=== PATIENT | male | born 1940 | race Caucasian/White ===

== ENCOUNTER → 2019-03-08 12:18 | Outpatient (CLI) | payer MEDICARE, OTHER, SELFPAY ==
--- NOTE | 2019-03-08 12:42 | DI.CT.S_ITS ---
PROCEDURE: CT UE LT WO CON INDICATIONS: Primary osteoarthritis, left shoulder TECHNIQUE: Noncontrast 1-1.5 mm thick sections acquired from the acromioclavicular joint to the inferior scapula, with coronal and sagittal reformatting. COMPARISON: None. FINDINGS: Image quality: Diagnostic. Bones: No acute fracture, dislocation, or suspicious osseous lesion is identified involving the osseous structures of the left shoulder. There are severe degenerative changes of the glenohumeral joint with prominent joint space narrowing, large marginal osteophytes, bony remodeling, subchondral sclerosis, and prominent degenerative cystic changes. There are mild to moderate degenerative changes of the acromioclavicular joint. The remainder of the imaged osseous structures of the included portions of the chest are within normal limits for age. Soft tissues: No soft tissue masses or drainable fluid collections are identified. There is no significant atrophy of the rotator cuff muscles to suggest a chronic rotator cuff tear. There likely is at least a small glenohumeral joint effusion. No axillary lymphadenopathy is identified. The included portions of the left lung are unremarkable. The heart appears to be enlarged. The main pulmonary arterial trunk probably also is enlarged. There is aortic atherosclerosis. IMPRESSION: 1. Severe degenerative changes of the left shoulder. No acute fractures. 2. Mild to moderate degenerative changes of the acromioclavicular joint. 3. No significant rotator cuff muscle atrophy is appreciated to suggest a chronic rotator cuff tear. Dictated by: Benigno Muñiz M.D. on 03/08/2019 at 13:46 Approved by: Benigno Muñiz M.D. on 03/08/2019 at 13:48
== END ==
PROVIDERS: Family Provider Family Medicine; PCP Family Medicine; Visit Provider Orthopaedic Surgery
DX: M19.012 Primary osteoarthritis, left shoulder (principal)
CPT/HCPCS: 73200

== ENCOUNTER → 2019-04-14 14:19 | Outpatient (CLI) | payer MEDICARE, OTHER, SELFPAY ==
[2019-04-14 14:44] LABS: Hematocrit 49.3 % (41-53); Hemoglobin 16.6 g/dL (13.5-17.5); Mean Corpuscular HGB Conc 33.7 % (30-36); Platelet Count 252 X10^3/uL (150-400); Red Blood Cell Count 5.54 X10^6/uL (4.5-5.9); Red Cell Distribution Width 14.2 % (11.6-14.8); White Blood Cell Count 7.3 X10^3/uL (4.5-11.0)
[2019-04-14 14:48] LABS: Bacteria Urine None Seen; WBC Urine None Seen (0-5/HPF)
[2019-04-14 14:59] LABS: Hemoglobin A1C% w Est Avg Glu 5.3 % (4.0-6.0)
[2019-04-14 15:20] LABS: Appearance Urine UA CLEAR; Bilirubin Urine UA NEGATIVE (NEGATIVE); Color Urine UA YELLOW; Glucose Urine UA NEGATIVE (Negative); Ketones Urine UA NEGATIVE (NEGATIVE); Leukocyte Esterase Urine UA NEGATIVE (NEGATIVE); Nitrite Urine UA NEGATIVE (Negative); Occult Blood Urine UA 2+ (Negative); Protein Urine UA NEGATIVE (Negative); Specific Gravity Urine UA 1.025 (1.000-1.035); Urobilinogen Urine UA 0.2 E.U./dL (0.2)
[2019-04-14 15:32] LABS: RBC Urine 5-10/HPF (0-5/HPF)
[2019-04-14 15:37] LABS: Transferrin 254 mg/dL (206-381)
== END ==
PROVIDERS: Family Provider Family Medicine; PCP Family Medicine; Visit Provider Orthopaedic Surgery
DX: E61.1 Iron deficiency (principal); N39.0 Urinary tract infection, site not specified; R73.9 Hyperglycemia, unspecified; Z01.818 Encounter for other preprocedural examination
CPT/HCPCS: 36415; 81001; 83036; 84466; 85027

== ENCOUNTER 2019-04-18 08:44 | Inpatient (IN) | payer MEDICARE, OTHER, SELFPAY ==
[2019-04-15 11:56] VITALS: BMI 25.8
[2019-04-18] VITALS (13 sets, daily range): BP systolic 113–149; BP diastolic 54–71; PULSE 56–83; RESP 14–20; TEMP 36.2–37; O2SAT 91–99; BMI 31.3
--- NOTE | 2019-04-18 06:00 | DI.RAD.S_ITS ---
PROCEDURE: XR SHOULDER LT MIN 2V INDICATIONS: POST OPERATIVE LEFT SHOULDER TECHNIQUE: Single views of the shoulder were acquired. COMPARISON: None. FINDINGS: Expected postoperative alignment of left shoulder arthroplasty. No fracture. Overlying postsurgical soft tissue changes. Dictated by: Luis Vivas M.D. on 04/18/2019 at 14:51 Approved by: Luis Vivas M.D. on 04/18/2019 at 14:52
[2019-04-18] MEDS: ACETAMINOPHEN 325 MG TABLET 975 MG PO ×3 (09:29→21:11)
[2019-04-18] MEDS: LACTATED RINGERS 1,000 ML 42 ML IV ×2 (09:29→12:29)
--- NOTE | 2019-04-18 09:35 | PM.PREOP ---
Pre-operative Note Interval Note History & Physical reviewed/Exam performed by Physician: Yes Changes to H&P: No
--- NOTE | 2019-04-18 09:43 | P.OP_ITS ---
Operative Date/Time/Diagnoses Date of procedure: 04/18/19 Time of procedure: 12:30 Pre-op diagnosis: Left shoulder osteoarthritis Post-op diagnosis: same Procedure & Clinicians Procedure: Left total shoulder replacement Same procedure as scheduled: Yes Indications: The patient has had progressively worsening left shoulder pain with radiographic changes consistent with arthritis. Non-operative management has failed and the patient has requested total shoulder replacement. The risks, benefits and alternatives to surgery were discussed with the patient prior to proceeding. Risks discussed included, but were not limited to, failure to relieve pain, stiffness, infection, nerve damage, deep venous thrombosis, pulmonary embolism, stroke, coma, heart attack, permanent paralysis and , as well as the potential need for eventual revision of the prosthetic. Surgeon: Zhou Hart Office Coordinator: Isatu Walton Click Yes if Unassisted: No Anesthesia Type: General, Peripheral nerve block and Local Operative Notes Findings: Severe osteoarthritis with significant osteophyte inferiorly and flattening of the humeral head. Glenoid exposure was particularly difficult d espite extensive releases. Closure Type: primary Specimen(s): none sent Prosthetic devices, grafts, tissues, transplants, or devices: Implants used in this procedure were manufactured by the [employer] and included and Altivate short stem total shoulder system with a size 16 stem, a 50 mm all polyethylene E plus pegged glenoid, a neutral humeral neck and a 50 mm by 20 mm offset humeral head. Applied: drain(s) and implant(s) Estimated Blood Loss (mL): 150 Blood products transfused: none Procedure in detail: The patient was seen in the pre-operative area, where the patient identified the left shoulder as the operative site and this was marked with my initials. The patient received pre-operative antibiotics, underwent an interscalene block, and was taken to the operating room and placed on the operative table in the supine position. After satisfactory anesthesia, a full ?time out? was performed. The patient was repositioned in the ?beach chair? position using a dedicated positioner. All pressure points were well padded, and the knees were slightly bent to prevent tension on the sciatic nerves. The left arm was prepared from the fingers to the base of the neck with ChloroPrep in the usual fashion and draped through sterile drapes. An approximately 15 cm incision was created, starting at the clavicle above the coracoid process and extended towards the deltoid insertion. The deltopectoral interval was used to access the shoulder. The cephalic vein was taken medially. A self retaining retractor was placed. The upper centimeter of the pectoralis major tendon was released. The ?three sisters? were identified and cauterized. The axillary nerve was palpated and protected throughout the case. The biceps was released from its groove and tenodesed over the top of the pectoralis major tendon. The subscapularis was released from the lesser tuberosity with a subscapularis peel and tagged for later repair. The shoulder was dislocated and a cutting guide was used for the proximal humeral osteotomy in 30 degrees of retroversion. The very large humeral osteophyte was removed with an osteotome and rongeurs. The capsule was released carefully to the 9 o'clock position posteriorly. A starter reamer was used followed by the cylindrical reamers. This continued in larger sizes until cortical bite was achieved. Sequential broaching was then performed until a line to line fit with the reamer occurred. A proximal humeral protector was then placed. We then removed the self-retaining retractor and placed retractors to access the glenoid. The subscapularis was released with a ?360 degree release? with care being taken to protect the axillary nerve with the inferior portion of this procedure. The remnant of labrum and biceps stump were removed. Despite circumferential releases of the glenoid and extensive capsular release on the humerus, glenoid access was difficult. Eventually we managed to get adequate retraction. The appropriate size reamer was chosen with the glenoid sizer, and the guide pin placed. The glenoid was appropriately reamed. The guide for the peripheral holes was used and the center hole enlarged. The trial glenoid was placed with good stability. We then cemented the final implant into place after irrigating the peg holes and drying them with thrombin-soaked Gelfoam. The anteroinferior peg hole had perforated the glenoid and was not cemented. We returned our attention to the humerus, a trial humeral head was applied and a trial reduction performed. Stability was checked with 50% posterior translation with spontaneous reduction, external rotation at the side to 45? with the subscapularis held on the repaired position and internal rotation to 70? in the ?scarecrow position?. This was felt to be satisfactory and the appropriate implants were opened. Five holes were drilled along the humeral osteotomy and #2 Ethibond sutures placed for eventual subscapularis repair. The humeral prosthetic was impacted into the humerus. The humeral head was applied when the stem was still slightly proud and impacted to both seat the head and fully seat the stem. The joint was relocated one final time. The joint was irrigated and the subscapularis repaired to the previously placed sutures using Aleksandr-Huan sutures. The top of the subscapularis was closed to the leading edge of the supraspinatus with a figure of 8 #2 Ethibond to close the rotator interval. A deep drain was placed and brought out supero-laterally. The deltopectoral interval was closed with interrupted 0 Vicryl. The subcutaneous layer was closed with 3-0 Vicryl, and the skin with a running 3-0 V-Lock suture and SteriStrips. An Aquacel Ag dressing was applied, the patient?s arm was placed in a sling, and the patient was taken to recovery having tolerated the procedure well. Complications: none Post-operative Condition: stable Disposition: PACU Plan for aftercare: The patient will be maintained on a standard total shoulder replacement protocol with passive range of motion limited to 90 degrees forward flexion, 0 degrees external rotation at the side, 0 degrees abduction and internal rotation to the body. The patient will receive aspirin and sequential compression devices for DVT prophylaxis. The patient will be discharged home when safe for the home environment, likely tomorrow.
--- NOTE | 2019-04-18 10:16 | SUR.PREOP ---
Block start time [1003] . Monitoring initiated and maintained throughout procedure. Oxygen and medications given per anesthesiologist instructions. Patient remained stable throughout procedure, no adverse reactions noted. Block end time 1009.
[2019-04-18] MEDS: CEFAZOLIN 2 GM/100 ML FROZ.PIGGY IV (10:20)
[2019-04-18] MEDS: MIDAZOLAM 2 MG/2 ML VIAL IV (10:20)
[2019-04-18] MEDS: TRANEXAMIC ACID 1,000 MG VIAL 1000 MG INJ ×2 (10:45→12:10)
--- NOTE | 2019-04-18 10:56 | SUR.OPER ---
Beach chair with Pedro/Gladis shoulder positioner. Lower body on padded OR bed. Head in foam padded head cradle, secured with straps. Non-operative arm secured <90 degrees abduction. Pillow under knees. Safety belt at thigh. Cloth tape over blanket over lower legs. Tape across chest over gown.
[2019-04-18] MEDS: BUPIVACAINE 0.5% W/ EPI (PF) VIAL 30 ML INJ (11:03)
[2019-04-18] MEDS: THROMBIN (RECOMBINANT) 5,000 UNIT VIAL 5000 UNIT TOP (11:03)
--- NOTE | 2019-04-18 11:05 | P.PCN_ITS ---
Procedures Date/Time Date of procedure: 04/18/19 Time of procedure: 10:06 Nerve Block Time out performed: Yes Local anesthetic used: other (15mL 0.5Ropivacaine, 5mL 2* Lidocaine) Location of anesthetic used: interscalene Amount of anesthesia used (mL): 20 Nerve blocks: brachial plexus (interscalene) Procedure successful: Yes Patient tolerated procedure: well Complications: none Additional comments: LEFT Brachial plexus nerve block for post operative pain management. Risks and benefits discussed, including bleeding, infection, intravascular injection, nerve damage, block failure. Standard ASA monitors, NC O2. 2mg versed. Pt supine. Chloroprep site preparation, sterile technique. Brachial plexus identified with US guidance, traced from supraclavicular to interscalene. 1mL 2% lidocaine skin wheal. 22g x 50mm Pajunk advanced with in- plane US guidance to brachial plexus. Negative aspiration. LA injected with intermittent negative aspiration. Good LA spread noted on US. No pain, no paraesthesia. Pt tolerated procedure well. Vital signs stable.
--- NOTE | 2019-04-18 12:59 | PC.NURSE ---
Day shift: Pt not on AC unit at this time.
--- NOTE | 2019-04-18 13:38 | PC.NURSE ---
Day shift: Pt on AC unit at this time. Oriented to room and call light. CMS present in BUE. Radial pulse strong. Heart murmur present. Pt denies any pain or discomfort. BT's are hypo. On 1L NC w/ and SpO2 of 94%. Call light in reach. SCD's in place.
[2019-04-18] MEDS: LACTATED RINGERS 1,000 ML 125 ML IV (14:08)
[2019-04-18] MEDS: BENZOCAINE/MENTHOL 1 LOZ PKT 1 EACH PO ×3 (17:51→22:16)
[2019-04-18] MEDS: dilTIAZem CD 240 MG CAP PO (21:11)
[2019-04-18] MEDS: FLECAINIDE 100 MG TABLET PO (21:11)
[2019-04-18] MEDS: OXYCODONE IR 5 MG TABLET PO (22:17)
[2019-04-19] MEDS: OXYCODONE IR 5 MG TABLET PO ×2 (01:35→08:57)
[2019-04-19 03:55] VITALS: BP 141/69; PULSE 65; RESP 14; TEMP 36.8; O2SAT 93
[2019-04-19 05:46] LABS: Hematocrit 43.3 % (41-53); Hemoglobin 14.5 g/dL (13.5-17.5); Mean Corpuscular HGB Conc 33.6 % (30-36); Mean Corpuscular Hemoglobin 29.9 PG (26-34); Mean Corpuscular Volume 89.1 fL (80-100); Platelet Count 225 X10^3/uL (150-400); Red Blood Cell Count 4.86 X10^6/uL (4.5-5.9); Red Cell Distribution Width 14.2 % (11.6-14.8); White Blood Cell Count 18.5 X10^3/uL (4.5-11.0)
[2019-04-19] MEDS: HYDROMORPHONE 0.5 MG INJ IV (05:49)
[2019-04-19 07:39] VITALS: BP 145/78; PULSE 74; RESP 16; TEMP 36.6; O2SAT 95
--- NOTE | 2019-04-19 07:44 | P.DS_ITS ---
History of Present Illness History of Present Illness Date Patient Seen: 04/19/19 Time Patient Seen: 07:44 Chief complaint: [id number] Narrative: The history and physical are contained in the chart in a previously completed note. Please refer to that note for this information. Discharge Providers Provider Date of admission: 04/18/19 08:44 Discharge Date: 04/19/19 Primary care physician: Armen Oden MD Consults: 04/18/19 13:38 Consult to Discharge Planning Routine Comment: Consult to Physical Therapy Evaluate & Treat Comment: PROM 90 ff, 0 ER, 0 ABD, IR to body Physician Instructions: Evaluate and Treat Discharge provider: Zhou Hart MD Summary Hospital Course Discharge Diagnosis: 1. Left shoulder osteoarthritis. Hospital Course: The patient was admitted to the hospital and taken directly to the operating room on April 18, 2019 where he underwent a left total shoulder replacement. He tolerated this procedure well. He did have a stress reaction with his white cells on postoperative day 1 but was not showing any other signs of infection. His neurologic status was intact. He was comfortable and appeared to be ready for discharge on postoperative day 1. Status at Discharge Cognitive/behavioral status at discharge: oriented Functional status at discharge: independent ambulation Overall status at discharge: patient is progressing back to baseline Time Spent with Patient Time spent: Less than 30 minutes Exam Vital Signs (past 8 hours): - 04/18/19 23:55 04/19/19 03:55 Temperature 98.4 F 98.3 F Pulse Rate 76 65 Respiratory Rate 16 14 Blood Pressure 133/71 141/69 H Pulse Oximetry 94 93 Oxygen Delivery Method Nasal Cannula Oxygen Flow Rate 0 Narrative Exam Narrative: Left shoulder wound is dressed with no drainage on the bandage. Light touch is intact in the radial, ulnar, median, musculocutaneous and axillary nerve distribution. He can extend his thumb, abduct his thumb, abduct his fingers and can fire his biceps and deltoid. Objective Labs Result Diagrams: 04/19/19 05:10 Labs: Laboratory Results - last 24 hr 04/19/19 05:10 WBC 18.5 H RBC 4.86 Hgb 14.5 Hct 43.3 MCV 89.1 MCH 29.9 MCHC 33.6 RDW 14.2 Plt Count 225 Discharge Plan Discharge Plan Patient Disposition: Home Discharge Med Rec/Prescriptions Prescriptions: New acetaminophen 325 mg Tablet 975 mg PO TID 30 Days Qty: 270 RF: 0 oxycodone 5 mg Tablet 5 mg PO Q3HR PRN (Reason: Pain, Moderate (4-6)) Qty: 40 RF: 0 Continued diltiazem HCl 240 mg Capsule,Extended Release 24 Hr 240 mg PO BID RF: 0 aspirin [Aspir-81] 81 mg Tablet,Delayed Release (Dr/Ec) 81 mg PO DAILY RF: 0 flecainide 100 mg Tablet 100 mg PO BID RF: 0 Follow up/Referrals: Zhou Hart MD [Physician] - 2 Weeks Armen Oden MD [Primary Care Provider] - Provider Discharge Instructions Diet: Diet as Tolerated and Regular Activity: You may use your left hand in front of your body below shoulder level. You may remove the sling for hygiene and to do pendulum exercises. Cold/Heat Therapy: Apply ice to the left shoulder for 15 minutes every hour as needed for pain control. Skin/Wound/Dressing Care Skin care: Keep a Maxi-pad or washcloth in your left armpit to absorb moisture. Report to your healthcare provider any signs of infection, such as:: chills, fever, night sweats, increased pain, unusual drainage and unusual redness Dressing: Leave the dressing in place until postoperative follow-up. You may shower with the dressing in place. If the central strip of the dressing becomes saturated with either water or blood please contact the office to have it ch anged. Visit Report/Discharge Packet Instructions: DI for Shoulder Replacement Stand Alone Forms: Surgery Discharge Discharge Data Primary Care Provider: Armen Oden Quality VTE Deep Vein Thrombosis/Pulmonary Embolism Present on Admission: No
[2019-04-19] MEDS: ASPIRIN EC 81 MG TABLET PO (08:58)
[2019-04-19] MEDS: dilTIAZem CD 240 MG CAP PO (08:58)
[2019-04-19] MEDS: ACETAMINOPHEN 325 MG TABLET 975 MG PO (08:58)
[2019-04-19] MEDS: FLECAINIDE 100 MG TABLET PO (08:58)
--- NOTE | 2019-04-19 09:19 | CM.DANOTE ---
DCP Assesement: EMR reviewed: Patient is a 78 yr old male who was admitted for total left shoulder replacement preformed by Dr. Hart. Patients PCP is Dr. Oden. patient lives at home with his Evita and daughter Sherrell. Met with patient and family at bedside and explained CM/Rn Role. patient was alert and oriented. Patient requested for dc plan that priority ferry boarding for the 10:35am ferry to [facility] be made to help facilitate getting home post discharge. CM spoke to unit [employer]PUTY [employer] C[employer]S DIRECTOR who will schedule patients Priority boarding. PT evaluation pending. Insurance: 1st payer: Medicare 2nd payer: [employer]. Discharge plan: patient is to d/c home 04/19/2019 by 10am with OP PT on [facility]. pending PT evaluation. No identified d/c planning needs at this time. Christy Rosales RN. Discharge Planning/Care Management Advanced directive, confirm from FAMILY Start: 04/18/19 14:12 Freq: Q24H Status: Active Protocol: Document 04/18/19 14:12 NIRU (Rec: 04/18/19 14:13 NIRU [id number]) Advance Directive, confirm on record Time 14:13 Person contacted evita Copy received No CM Discharge Assessment Start: 04/19/19 09:17 Freq: Status: Active Protocol: Document 04/19/19 09:18 HS (Rec: 04/19/19 09:19 HS [id number]) Discharge Planning Assessment Assigned Food Scientist Christy Rosales RN DPOA/Assigned Designee Name Evita Carpio () Contact Information [phone] Advance Directives? No Advance Directives on File No History Provided By Patient,Medical Record Has Patient been admitted in last 30 No days? Prior Living Arrangements House Household Members spouse Type of transporation used prior to Drives own vehicle admit Independent with ADL's Yes Is patient alert and oriented? Yes Caregiver for Another No Patient/Family Preference OP PT Therapy Barriers to Discharge No Discharge Plan Home Whiteboard Updated in Patient Room with Yes name and ext. # of Food Scientist Review Status In Process Next Review Type Continued Stay Review Pre-Anesthesia Assessment Start: 04/15/19 11:56 Freq: Status: Complete Protocol: Document 04/15/19 11:56 CAB (Rec: 04/15/19 12:36 CAB [id number]) Pre-Anesthesia Assessment Patient Information Reviewed Via Phone Assessment Assessment Completed With Patient Diagnostic Results CBC,EKG Comment Labs @ [facility] 04/14/19, Outside EKG scanned to record Primary Care Provider Armen Oden Seen Specialist in Last 12 Months Yes Specialist Seen Sleeve Sewer,Orthopedist Primary Language Swazi Height 172.72 cm Weight 77.111 kg Body Mass Index (BMI) 25.8 Hearing Ability Hard of Hearing,Use of Hearing Aid Visual Assist Glasses Dentition Type Teeth, Natural Present Barriers to Learning None Hx Anesthesia Reactions No Hx Family Anesthesia Reaction No Hx Malignant Hyperthermia No Hx Blood Transfusions No Anesthesia Review Requested No alcohol intake former Alcohol Intake Frequency Other: No longer drinks r/t heart health Smoking Status Never smoker Substance Use Type does not use Pain Present Pain Reported Musculoskeletal Symptoms Joint Pain,Limited Range of Motion,Muscle Weakness, Numbness History of Falling (Recent or History of No ) Patient is completely paralyzed or No completely immobile Mental Status Oriented to own ability Is patient on oxygen? No Does patient have SANDHU/SOB No Hx Sleep Apnea No Currently Taking a Beta Sherri No Can You Climb a Flight of Stairs Without Yes SOB Hx Chest Pain No Hx SOB No Hx Syncope or Dizziness No Anti-Coagulant Therapy Yes: 81mg ASA Has a Sleeve Sewer Yes: Dr. Castro-last visit 06/07 Cardiac Testing No Hx Pacemaker/ICD No Pacemaker Rep Required? No Cardiac Clearance Received Yes Comment Cardiac records put to surgery folder for dos Diet Type At Home Regular dysphagia No Genitourinary Symptoms Itching Bladder Pattern Frequency,Nocturia Urinary Catheter Present No Hx Urinary Self Catheterization No Diabetes No HgbA1C 5.3 Date 04/14/19 Hx Drug Resistant Organism No Presence of External or Internal Medical No Devices Have you traveled outside the [facility] in the last 30 days? Marital Status Lives With spouse Prior Living Arrangements House Number of Floors (Floors) Two Floors Support System Spouse Does the Patient Have Assistance After Yes Surgery Patient Discharge Plan Description Return Home Comment Lives on [facility], advised overnight-3 day length stay per surgeon Feels Safe in Current Environment Yes Been Physically Hurt or Threatened By a No Person in Current Environment Do you have thoughts of harming yourself None or others? Are you currently considering suicide? No Do you have a plan to hurt yourself or No Plan others? Do You Have Any Spiritual Beliefs That No May Affect Your HC Choices? Do You Have Any Cultural Practices That No May Affect Your HC Choices? Comment Nico Who Can We Speak to About Patient's Care Family, friends Identifying Code for Release of Patient Declines to issue Information Health Care Proxy/Next of Kin Evita () Health Care Proxy Emergency Contact Name Evita () Emergency Contact Advance Directives? No: Information put to pt's chart PAC Instructions Durable medical equipment, Medications to take/avoid, Nasal antibiotic,No ETOH/ petroleum product on skin DOS, NPO,Post-op transportation,Pre -surgical wash,Sturdy shoes/ comfortable clothes,Do not bring valuables and remove jewelry
--- NOTE | 2019-04-19 09:44 | PT.IIE ---
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) Physical Therapy Inpatient Evaluation/Re-Eval M1 PT/OT-IP Prior Functional Status Start: 04/19/19 08:39 Freq: NEEDED Status: Active Protocol: Document 04/19/19 09:25 AW (Rec: 04/19/19 09:44 AW [email or web address]) Medical Review Prior Functional Status Medical History Reviewed Yes Diet/Fluid Consistency Regular Communication Able to make needs known Mobility and Gait Pt was indepedent with all functional mobility, requiring no assistive device and no limitations Activities of Daily Living and IADL's Indpendent Social History Household Members spouse Living Arrangements House Number of Floors (Floors) Two Floors Number of Stairs To Enter/Railing? 4 PHILIPPE with bilateral rails; 14 steps between floors - 1st 7 steps have left rail, 2nd 7 steps have right rail. 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 is available to assist as needed . M2 PT-IP Current Condition Start: 04/19/19 08:39 Freq: NEEDED Status: Active Protocol: Document 04/19/19 09:25 AW (Rec: 04/19/19 09:44 AW [email or web address]) Physical Therapy Current Condition Current Condition Evaluation Date 04/19/19 Treatment Diagnosis s/p L TSA, difficulty/ increased dependence with ADL' s Precautions Shoulder Precautions Sling,PROM,Internal Rotation to Body,No External Rotation, No Abduction,Forward Flexion to 90 degrees,Pendulums Brace shoulder sling with neck strap and waist strap Weight Bearing Status Weight Bearing Status Full Weight Bearing M3 PT-IP Subjective Start: 04/19/19 08:39 Freq: NEEDED Status: Active Protocol: Document 04/19/19 09:25 AW (Rec: 04/19/19 09:44 AW [email or web address]) Subjective Physical Therapy Visit Type Type Initial Evaluation Visit Start Time 08:50 Visit Stop Time 09:16 Total Visit Minutes 26 Notes Pt seen with spouse present for caregiver training Physical Therapy Visit Comments Patient Comments Pt willing to work with PT Patient Goals Pt is ready to go home as soon as possible Therapy Pain Assessment Pain When Pain Assessed During Mobility Pain Present Pain Present Pain Reported Location Lt Shoulder Intensity 3 Scale Used Numeric (1 - 10) Pain Behaviors Facial Grimacing,Wincing Pain Management Techniques Apply Cold,Timing of Activity with Medications M4 PT-IP Mobility and Gait Start: 04/19/19 08:39 Freq: NEEDED Status: Active Protocol: Document 04/19/19 09:25 AW (Rec: 04/19/19 09:44 AW [email or web address]) PT-Bed Mobility Assessment Supine to Sit Supine to Sit Standby Assistance Scooting Scooting to Edge of Bed Standby Assistance PT-Transfer Assessment Sit to and From Stand Sit to and from Stand Standby Assistance Equipment Transfer Assistive Device Gait Belt Orthotic/Prosthetic Devices or Brace: Yes Transfers Transfer Destination Chair Transfer Technique pt ambulated SBA, no device Transfer Ability Level of Assist Standby Assistance Comments Mobility Comments Pt required min verbal cues to maintain internally rotated position without shoulder elevation, requiring no more than SBA Gait Assessment Gait Gait Assistance Required: Independent Distance (Feet) 100 Able to Maintain Weight Bearing Status Yes During Gait Assistive Devices Assistive Device Gait Belt Orthotic/Prosthetic Devices or Brace: Yes Gait Deviations General Gait Pattern Within Normal Limits Comments Gait Comments Pt ambulated without need for assistive device or assistance . Stair Climbing Assessment Evaluation Level of Assist On Stairs Standby Assistance Devices Stair Climbing Assistive Devices None Technique/Endurance Stair Climbing Direction Ascend and Descend Stair Climbing Technique Step Over Step Number of Steps Climbed 3 Query Text: Stair Climbing Set # Repetitions (reps) 4 Comments Stair Climbing Comments Pt navigated stairs SBA without railing. PT provided instruction to use right railing only, but pt was able to use the stairs without. PT-Balance Assessment Sitting Balance and Reactions Static Sitting Balance Ability Normal Dynamic Sitting Balance Ability Normal Standing Balance and Reactions Static Standing Balance Ability Normal Dynamic Standing Balance Ability Good Device Used none M5 PT-IP Objective Assessments Start: 04/19/19 08:39 Freq: NEEDED Status: Active Protocol: Document 04/19/19 09:25 AW (Rec: 04/19/19 09:44 AW [email or web address]) Orientation Orientation/Cognition Level of Alertness Alert Orientation Name,Date,Place,Situation Language Function Ability No Deficits Noted Safety Awareness Understands Safety Issues Memory Description No Deficits Noted Comments Pt able to repeat shoulder precautions. Gross Range of Motion Upper Extremity ROM Assessment Left Impaired Lower Extremity ROM Assessment Within Functional Limits Strength Upper Extremity Strength Assessment Left Impaired Lower Extremity Strength Assessment Within Functional Limits Coordination Assessment Gross Coordination Gross Coordination WNL Sensation Assessment Sensation Gross Sensation WNL M6 PT-IP Treatment Start: 04/19/19 08:39 Freq: NEEDED Status: Active Protocol: Document 04/19/19 09:25 AW (Rec: 04/19/19 09:44 AW [email or web address]) Physical Therapy Treatment Exercises Exercises Shoulder Pendulums Education Education Provided Precautions,Weight Bearing Status,Post-Op Packet,Safety Brace Education Donning,[place],Patient, Caregiver Other Treatments Other Treatment Performed Educated pt's to don and doff the sling, correct positioning, and use of the sling at all times except for showering and elbow/distal AROM. Discussed sleep positions with pt who agreed that sleeping in a recliner for the next several days with sling on or with arm propped on pillows would be best option. M7 PT-IP Assessment and Plan Start: 04/19/19 08:39 Freq: NEEDED Status: Active Protocol: Document 04/19/19 09:25 AW (Rec: 04/19/19 09:44 AW [email or web address]) PT Summary Assessment and Plan Potential Rehabilitation Potential Excellent Status of Condition at Evaluation Evolving Summary Impairments Pain,ROM,Strength Assessment Summary Pt is a 78 yo man seen on POD1 following L TSA. Prior to surgery, he was independent in all regards. He now presents with increased dependence for ADL's. Pt and his spouse were educated on optimal sling fitting, donning/doffing sling , dressing strategies, and bathing strategies. Reviewed pendulum motion for ADL's and for daily time out of sling, emphasizing forward/backward rocking initiated by LE's to avoid active movement of the glenohumeral joint. PT recommends discharge to home with spouse assist and outpatient PT. Frequency of Treatment Frequency Of Treatment Discharge Recommendations To Nursing Amount of Assist Needed Standby Assistance Discharge Recommendations PT Discharge Recommendations Home with Assistance, Outpatient PT Other Discharge Recommendations Spouse to procure shower seat for home, preferably with a back rest.
--- NOTE | 2019-04-19 09:53 | PC.NURSE ---
Pts just discharged. Hemovac taken out by student nurse with RN in room. He tolerated this well. IV taken out and pt is now discharged.
== END 2019-04-19 09:53 | disposition home or self-care (01) | DRG 483 ==
PROVIDERS: Admitting Provider Orthopaedic Surgery; Family Provider Family Medicine; PCP Family Medicine; Visit Provider Orthopaedic Surgery
PROC: 0RRK0JZ Replacement of Left Shoulder Joint with Synthetic Substitute, Open Approach (ICD-10-PCS; CPT 23472; principal; 2019-04-18 10:15)
DX: M19.012 Primary osteoarthritis, left shoulder (principal); Q21.0 Ventricular septal defect; I48.21 Permanent atrial fibrillation; I25.10 Atherosclerotic heart disease of native coronary artery without angina pectoris
CPT/HCPCS: 64415; 73030; 85027; 97161; C1776; J0690; J1100; J1170; J2250; J2405; J2704; J3010

== ENCOUNTER → 2021-07-10 11:34 | Outpatient (CLI) | payer MEDICARE, OTHER, SELFPAY ==
[2019-04-18 13:59] VITALS: BMI 31.3
[2021-07-10 20:01] LABS: Add Manual Diff / Slide Review NO; Basophils Absolute Auto 100 /uL (0-100); Basophils Percent Auto 0.7 % (0-2); Eosinophils Absolute Auto 100 /uL (0-450); Eosinophils Percent Auto 1.7 % (2-4); Hematocrit 49.2 % (41-53); Hemoglobin 16.8 g/dL (13.5-17.5); Lymphocytes Absolute Auto 1100 /uL (1100-4500); Lymphocytes Percent Auto 14.6 % (25-40); Mean Corpuscular Hemoglobin 30.1 PG (26-34); Mean Corpuscular Volume 88.5 fL (80-100); Monocytes Absolute Auto 900 /uL (0-900); Monocytes Percent Auto 11.1 % (3-14); Neutrophils Absolute Auto 5600 /uL (1500-7000); Neutrophils Percent Auto 71.9 % (50-75); Platelet Count 271 X10^3/uL (150-400); Red Blood Cell Count 5.56 X10^6/uL (4.5-5.9); Red Cell Distribution Width 13.8 % (11.6-14.8); White Blood Cell Count 7.7 X10^3/uL (4.5-11.0)
[2021-07-10 20:09] LABS: Alanine Aminotransferase 24 IU/L (<50); Albumin Globulin Ratio 1.1 (1.0-2.8); Alkaline Phosphatase 95 U/L (38-126); Aspartate Aminotransferase 25 IU/L (17-59); BUN Creatinine Ratio 20.2 (6-22); Bilirubin Total 0.5 mg/dL (0.2-1.3); Blood Urea Nitrogen 23 mg/dL (9-20); Calcium 9.7 mg/dL (8.4-10.2); Carbon Dioxide 29 mmol/L (22-32); Chloride 108 mmol/L (98-107); Estimated Glomerular Filt Rate > 60.0 mL/min (>60); Globulin 3.5 g/dL (1.7-4.1); Glucose 105 mg/dL (80-110); HEMOLYSIS < 15 (0-50); Sodium 140 mmol/L (137-145); Total Protein 7.5 g/dL (6.3-8.2)
[2021-07-10 20:37] LABS: TSH w/ Reflex to FT4 2.16 uIU/mL (0.47-4.68)
== END ==
PROVIDERS: Family Provider Family Medicine; PCP Physician Assistant Medical; Visit Provider Physician Assistant Medical
DX: I48.20 Chronic atrial fibrillation, unspecified (principal); S61.213A Laceration without foreign body of left middle finger without damage to nail, initial encounter; L72.3 Sebaceous cyst; I34.0 Nonrheumatic mitral (valve) insufficiency; R44.9 Unspecified symptoms and signs involving general sensations and perceptions; Z48.02 Encounter for removal of sutures; M25.511 Pain in right shoulder; M25.512 Pain in left shoulder; I10 Essential (primary) hypertension
CPT/HCPCS: 80053; 84443; 85025

== ENCOUNTER → 2021-11-18 10:19 | Outpatient (CLI) | payer MEDICARE, OTHER, SELFPAY ==
[2021-07-25 10:39] VITALS: BMI 31.3
[2021-11-18 19:44] LABS: COVID19 - ORCAS (NP or Nasal) Negative (Negative)
== END ==
PROVIDERS: Family Provider Family Medicine; PCP Physician Assistant Medical; Visit Provider Family Medicine
DX: Z01.812 Encounter for preprocedural laboratory examination (principal); Z20.822 Contact with and (suspected) exposure to COVID-19
CPT/HCPCS: C9803; U0003

== ENCOUNTER → 2022-02-26 11:46 | Outpatient (CLI) | payer MEDICARE, OTHER, SELFPAY ==
[2021-07-25 10:39] VITALS: BMI 31.3
--- NOTE | 2022-02-26 11:48 | DI.CT.S_ITS ---
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 COMPARISON: None. FINDINGS: Image quality: Excellent. Bones: Severe glenohumeral joint osteoarthritic changes are seen with near complete loss of joint space, extensive subchondral sclerosis and cyst formation and prominent inferior marginal osteophyte formation. Subcortical cystic area is seen with sclerotic margin measures 1.3 x 1.4 cm in size. No suspicious intraosseous lesion. Moderate acromioclavicular joint osteoarthritic changes also seen with joint space narrowing and subchondral sclerosis. No acute fracture or dislocation. The visualized right upper ribs are intact. Soft tissues: There is no full-thickness rotator cuff tendon rupture. No significant muscle atrophy is seen on sagittal images. No significant joint effusion is seen. No intra-articular loose bodies or abnormal soft tissue calcifications. No axillary lymphadenopathy by size criteria. IMPRESSION: 1. Moderate to severe glenohumeral joint osteoarthritis with prominent subcortical cystic area involving inferior glenoid, erosion secondary to inflammatory arthropathy cannot be excluded. Moderate acromioclavicular joint osteoarthritis. No fracture or dislocation. No suspicious intraosseous lesion. 2. No full-thickness rotator cuff tendon rupture. No significant joint effusion or abnormal soft tissue calcifications. Dictated by: Chad Bullard M.D. on 02/26/2022 at 15:33 Approved by: Chad Bullard M.D. on 02/26/2022 at 15:46
== END ==
PROVIDERS: Family Provider Family Medicine; PCP Physician Assistant Medical; Referring Provider Orthopaedic Surgery; Visit Provider Orthopaedic Surgery
DX: M19.011 Primary osteoarthritis, right shoulder (principal); M25.511 Pain in right shoulder
CPT/HCPCS: 73200

== ENCOUNTER → 2022-03-25 07:05 | Outpatient (CLI) | payer MEDICARE, OTHER, SELFPAY ==
[2021-07-25 10:39] VITALS: BMI 31.3
[2022-03-25 22:02] LABS: COVID19 - ORCAS (NP or Nasal) Negative (Negative)
== END ==
PROVIDERS: Family Provider Family Medicine; PCP Physician Assistant Medical; Visit Provider Physician Assistant
DX: Z01.812 Encounter for preprocedural laboratory examination (principal); Z20.822 Contact with and (suspected) exposure to COVID-19
CPT/HCPCS: C9803; U0003

== ENCOUNTER → 2022-04-16 12:04 | Outpatient (CLI) | payer MEDICARE, OTHER, SELFPAY ==
[2021-07-25 10:39] VITALS: BMI 31.3
[2022-04-16 20:46] LABS: Magnesium 2.2 mg/dL (1.6-2.3)
== END ==
PROVIDERS: Internal Medicine Interventional Cardiology; Family Provider Family Medicine; PCP Physician Assistant Medical
DX: I48.20 Chronic atrial fibrillation, unspecified (principal); I47.2 Ventricular tachycardia
CPT/HCPCS: 83735

== ENCOUNTER → 2022-05-19 07:20 | Outpatient (CLI) | payer MEDICARE, OTHER, SELFPAY ==
[2021-07-25 10:39] VITALS: BMI 31.3
[2022-05-19 21:05] LABS: COVID19 - ORCAS (NP or Nasal) Negative (Negative)
== END ==
PROVIDERS: Family Provider Family Medicine; PCP Physician Assistant Medical; Visit Provider Family Medicine
DX: Z20.822 Contact with and (suspected) exposure to COVID-19 (principal)
CPT/HCPCS: C9803; U0003

== ENCOUNTER → 2022-07-29 11:58 | Outpatient (CLI) | payer MEDICARE, OTHER, SELFPAY ==
[2021-07-25 10:39] VITALS: BMI 31.3
[2022-07-29 20:21] LABS: Cholesterol 139 mg/dL (140-199); HDL Cholesterol 40 mg/dL (40-60); LDL Cholesterol Calculated 79 mg/dL (<100); Triglycerides 100 mg/dL (35-150)
[2022-07-29 20:32] LABS: LDL Cholesterol Direct 74 mg/dL (<100)
== END ==
PROVIDERS: Family Provider Family Medicine; PCP Physician Assistant Medical; Visit Provider Nurse Practitioner
DX: I25.10 Atherosclerotic heart disease of native coronary artery without angina pectoris (principal); G45.9 Transient cerebral ischemic attack, unspecified; E78.5 Hyperlipidemia, unspecified
CPT/HCPCS: 80061; 83721

== ENCOUNTER → 2022-09-25 11:27 | Outpatient (CLI) | payer MEDICARE, OTHER, SELFPAY ==
[2021-07-25 10:39] VITALS: BMI 31.3
[2022-09-25 19:33] LABS: Cholesterol 94 mg/dL (140-199); HDL Cholesterol 39 mg/dL (40-60); LDL Cholesterol Calculated 41 mg/dL (<100); Triglycerides 69 mg/dL (35-150)
== END ==
PROVIDERS: Family Provider Family Medicine; PCP Family Medicine; Visit Provider Family Medicine
DX: E78.2 Mixed hyperlipidemia (principal)
CPT/HCPCS: 80061

== ENCOUNTER → 2023-04-30 11:22 | Outpatient (CLI) | payer MEDICARE, OTHER, SELFPAY ==
[2021-07-25 10:39] VITALS: BMI 31.3
[2023-04-30 20:00] LABS: Add Manual Diff / Slide Review NO; BUN Creatinine Ratio 21.7 (6-22); Basophils Absolute Auto 100 /uL (0-100); Basophils Percent Auto 0.7 % (0-2); Blood Urea Nitrogen 30 mg/dL (9-20); Calcium 9.1 mg/dL (8.4-10.2); Carbon Dioxide 24 mmol/L (22-32); Chloride 108 mmol/L (98-107); Cholesterol 100 mg/dL (140-199); Eosinophils Absolute Auto 100 /uL (0-450); Eosinophils Percent Auto 1.5 % (2-4); Estimated Glomerular Filt Rate 52 mL/min (>60); Glucose 102 mg/dL (80-110); HDL Cholesterol 37 mg/dL (40-60); HEMOLYSIS < 15 (0-50); Hematocrit 36.5 % (41-53); Hemoglobin 12.5 g/dL (13.5-17.5); LDL Cholesterol Calculated 49 mg/dL (<100); Lymphocytes Absolute Auto 800 /uL (1100-4500); Lymphocytes Percent Auto 12.1 % (25-40); Mean Corpuscular HGB Conc 34.1 % (30-36); Mean Corpuscular Hemoglobin 30.7 PG (26-34); Mean Corpuscular Volume 90.2 fL (80-100); Monocytes Absolute Auto 700 /uL (0-900); Monocytes Percent Auto 10.6 % (3-14); Neutrophils Absolute Auto 5100 /uL (1500-7000); Neutrophils Percent Auto 75.1 % (50-75); Platelet Count 239 X10^3/uL (150-400); Potassium 4.1 mmol/L (3.4-5.1); Red Blood Cell Count 4.05 X10^6/uL (4.5-5.9); Red Cell Distribution Width 14.6 % (11.6-14.8); Sodium 138 mmol/L (137-145); Triglycerides 69 mg/dL (35-150); White Blood Cell Count 6.8 X10^3/uL (4.5-11.0)
[2023-04-30 20:26] LABS: TSH w/ Reflex to FT4 1.46 uIU/mL (0.47-4.68)
== END ==
PROVIDERS: Family Provider Family Medicine; PCP Family Medicine; Visit Provider Family Medicine
DX: I25.10 Atherosclerotic heart disease of native coronary artery without angina pectoris (principal); I10 Essential (primary) hypertension; E78.2 Mixed hyperlipidemia; Z86.73 Personal history of transient ischemic attack (TIA), and cerebral infarction without residual deficits; I34.0 Nonrheumatic mitral (valve) insufficiency; K21.9 Gastro-esophageal reflux disease without esophagitis
CPT/HCPCS: 80048; 80061; 84443; 85025

== ENCOUNTER → 2023-06-18 09:16 | Outpatient (CLI) | payer MEDICARE, OTHER, SELFPAY ==
[2021-07-25 10:39] VITALS: BMI 31.3
[2023-06-18 21:03] LABS: HEMOLYSIS < 15 (0-50); Iron 45 ug/dL (49-181)
[2023-06-18 21:06] LABS: Alanine Aminotransferase 41 IU/L (<50); Albumin 3.6 g/dL (3.5-5.0); Alkaline Phosphatase 119 U/L (38-126); Aspartate Aminotransferase 33 IU/L (17-59); Bilirubin Total 0.6 mg/dL (0.2-1.3); Blood Urea Nitrogen 27 mg/dL (9-20); Calcium 9.3 mg/dL (8.4-10.2); Carbon Dioxide 27 mmol/L (22-32); Chloride 107 mmol/L (98-107); Cholesterol 105 mg/dL (140-199); Estimated Glomerular Filt Rate 50 mL/min (>60); Globulin 3.5 g/dL (1.7-4.1); Glucose 98 mg/dL (80-110); HDL Cholesterol 39 mg/dL (40-60); HEMOLYSIS < 15 (0-50); LDL Cholesterol Calculated 54 mg/dL (<100); Potassium 4.1 mmol/L (3.4-5.1); Sodium 140 mmol/L (137-145); Total Protein 7.1 g/dL (6.3-8.2); Triglycerides 58 mg/dL (35-150)
[2023-06-18 21:17] LABS: Percent Iron Saturation 13 % (20-50); Total Iron Binding Capacity 347 ug/dL (261-462); Transferrin 272 mg/dL (206-381)
[2023-06-18 21:22] LABS: Reticulocyte Count, Percent 0.9 % (0.9-2.6)
[2023-06-18 21:26] LABS: Add Manual Diff / Slide Review NO; Basophils Absolute Auto 0 /uL (0-100); Basophils Percent Auto 0.5 % (0-2); Eosinophils Absolute Auto 100 /uL (0-450); Eosinophils Percent Auto 1.5 % (2-4); Hematocrit 40.8 % (41-53); Hemoglobin 13.5 g/dL (13.5-17.5); Lymphocytes Absolute Auto 900 /uL (1100-4500); Lymphocytes Percent Auto 12.9 % (25-40); Mean Corpuscular Hemoglobin 28.6 PG (26-34); Mean Corpuscular Volume 86.8 fL (80-100); Monocytes Absolute Auto 800 /uL (0-900); Monocytes Percent Auto 11.7 % (3-14); Neutrophils Absolute Auto 5100 /uL (1500-7000); Neutrophils Percent Auto 73.4 % (50-75); Platelet Count 261 X10^3/uL (150-400); Red Cell Distribution Width 14.1 % (11.6-14.8); White Blood Cell Count 6.9 X10^3/uL (4.5-11.0)
[2023-06-18 21:38] LABS: TSH w/ Reflex to FT4 1.79 uIU/mL (0.47-4.68)
[2023-06-18 21:39] LABS: Appearance Urine UA CLEAR; Bilirubin Urine UA NEGATIVE (NEGATIVE); Color Urine UA YELLOW; Glucose Urine UA NEGATIVE (Negative); Ketones Urine UA NEGATIVE (NEGATIVE); Leukocyte Esterase Urine UA NEGATIVE (NEGATIVE); Nitrite Urine UA NEGATIVE (Negative); Occult Blood Urine UA TRACE-INTACT (Negative); Protein Urine UA NEGATIVE (Negative); Urobilinogen Urine UA 0.2 E.U./dL (0.2)
[2023-06-18 22:00] LABS: Vitamin B12 421 pg/mL (239-931)
[2023-06-18 22:10] LABS: Bacteria Urine None Seen; Culture Indicated Urine Cult Not Indicated; RBC Urine 0-1/HPF (0-5/HPF); Squamous Epithelial Cell Urine None Seen (0-5/HPF); WBC Urine None Seen (0-5/HPF)
[2023-06-18 22:36] LABS: Microalbumi Creatinin Ratio Ur 33.9 ug/mg CR (<30); Microalbumin Urine Random 3.5 mg/dL (0-1.6)
[2023-06-23 20:55] LABS: ANA Screen, IFA Negative (.)
== END ==
PROVIDERS: Family Provider Family Medicine; PCP Family Medicine; Visit Provider Family Medicine
DX: I25.10 Atherosclerotic heart disease of native coronary artery without angina pectoris (principal); N18.31 Chronic kidney disease, stage 3a; I10 Essential (primary) hypertension; Z79.01 Long term (current) use of anticoagulants; K21.9 Gastro-esophageal reflux disease without esophagitis; E78.2 Mixed hyperlipidemia; D64.9 Anemia, unspecified; Z86.73 Personal history of transient ischemic attack (TIA), and cerebral infarction without residual deficits; I48.20 Chronic atrial fibrillation, unspecified
CPT/HCPCS: 80053; 80061; 81001; 82043; 82570; 82607; 83540; 83550; 84100; 84443; 85025; 85045; 86038

== ENCOUNTER → 2024-02-18 10:27 | Outpatient (CLI) | payer MEDICARE, OTHER, SELFPAY ==
[2021-07-25 10:39] VITALS: BMI 31.3
[2024-02-18 21:06] LABS: Add Manual Diff / Slide Review NO; Basophils Absolute Auto 0 /uL (0-100); Basophils Percent Auto 0.4 % (0-2); Eosinophils Absolute Auto 100 /uL (0-450); Eosinophils Percent Auto 1.4 % (2-4); Hematocrit 47.5 % (41-53); Hemoglobin 15.9 g/dL (13.5-17.5); Lymphocytes Absolute Auto 1000 /uL (1100-4500); Lymphocytes Percent Auto 15.8 % (25-40); Mean Corpuscular HGB Conc 33.5 % (30-36); Mean Corpuscular Hemoglobin 30.8 PG (26-34); Monocytes Absolute Auto 800 /uL (0-900); Monocytes Percent Auto 11.7 % (3-14); Neutrophils Absolute Auto 4700 /uL (1500-7000); Neutrophils Percent Auto 70.7 % (50-75); Platelet Count 224 X10^3/uL (150-400); Red Blood Cell Count 5.16 X10^6/uL (4.5-5.9); Red Cell Distribution Width 14.8 % (11.6-14.8); White Blood Cell Count 6.6 X10^3/uL (4.5-11.0)
[2024-02-18 21:19] LABS: Alanine Aminotransferase 29 IU/L (<50); Albumin 3.8 g/dL (3.5-5.0); Albumin Globulin Ratio 1.2 (1.0-2.8); Alkaline Phosphatase 129 U/L (38-126); Aspartate Aminotransferase 30 IU/L (17-59); BUN Creatinine Ratio 21.6 (6-22); Bilirubin Total 0.9 mg/dL (0.2-1.3); Blood Urea Nitrogen 29 mg/dL (9-20); Calcium 9.2 mg/dL (8.4-10.2); Carbon Dioxide 22 mmol/L (22-32); Chloride 110 mmol/L (98-107); Cholesterol 104 mg/dL (140-199); Estimated Glomerular Filt Rate 53 mL/min (>60); Globulin 3.2 g/dL (1.7-4.1); Glucose 92 mg/dL (80-110); HDL Cholesterol 42 mg/dL (40-60); HEMOLYSIS 23 (0-50); LDL Cholesterol Calculated 48 mg/dL (<100); Potassium 4.2 mmol/L (3.4-5.1); Sodium 138 mmol/L (137-145); Triglycerides 71 mg/dL (35-150)
[2024-02-18 21:48] LABS: Prostate Specific Antigen Scrn 4.02 ng/mL (0.1-4.0)
== END ==
PROVIDERS: Family Provider Family Medicine; PCP Family Medicine; Visit Provider Family Medicine
DX: D64.9 Anemia, unspecified (principal); N18.31 Chronic kidney disease, stage 3a; Z12.5 Encounter for screening for malignant neoplasm of prostate; I25.10 Atherosclerotic heart disease of native coronary artery without angina pectoris; E78.2 Mixed hyperlipidemia; Z86.73 Personal history of transient ischemic attack (TIA), and cerebral infarction without residual deficits; I12.9 Hypertensive chronic kidney disease with stage 1 through stage 4 chronic kidney disease, or unspecified chronic kidney disease
CPT/HCPCS: 80053; 80061; 85025; G0103

== ENCOUNTER → 2024-08-24 13:34 | Outpatient (CLI) | payer MEDICARE, OTHER, SELFPAY ==
[2021-07-25 10:39] VITALS: BMI 31.3
[2024-08-24 19:07] LABS: Prostate Specific Antigen 4.14 ng/mL (0.10-4.00)
== END ==
PROVIDERS: Family Provider Family Medicine; PCP Family Medicine; Visit Provider Family Medicine
DX: R97.20 Elevated prostate specific antigen [PSA] (principal)
CPT/HCPCS: 84153

== ENCOUNTER → 2024-11-29 11:44 | Outpatient (CLI) | payer MEDICARE, OTHER, SELFPAY ==
[2021-07-25 10:39] VITALS: BMI 31.3
[2024-11-29 19:11] LABS: Alkaline Phosphatase 113 U/L (38-126); Blood Urea Nitrogen 24 mg/dL (9-20); Calcium 8.8 mg/dL (8.4-10.2); Carbon Dioxide 24 mmol/L (22-32); Chloride 109 mmol/L (98-107); Estimated Glomerular Filt Rate 50 mL/min (>60); Glucose 133 mg/dL (70-99); HEMOLYSIS < 15 (0-50); Potassium 3.8 mmol/L (3.4-5.1); Sodium 140 mmol/L (137-145)
[2024-11-29 19:43] LABS: Prostate Specific Antigen 4.08 ng/mL (0.10-4.00)
== END ==
PROVIDERS: Family Provider Family Medicine; PCP Family Medicine; Visit Provider Family Medicine
DX: R97.20 Elevated prostate specific antigen [PSA] (principal); R74.8 Abnormal levels of other serum enzymes; Z86.73 Personal history of transient ischemic attack (TIA), and cerebral infarction without residual deficits; I10 Essential (primary) hypertension
CPT/HCPCS: 80048; 84075; 84153

== ENCOUNTER → 2025-06-01 11:01 | Outpatient (CLI) | payer MEDICARE, OTHER, SELFPAY ==
[2021-07-25 10:39] VITALS: BMI 31.3
[2025-06-01 20:16] LABS: Prostate Specific Antigen 5.60 ng/mL (0.10-4.00)
== END ==
LOC: LAB 11:01
PROVIDERS: Family Provider Family Medicine; PCP Family Medicine; Visit Provider Family Medicine
DX: R97.20 Elevated prostate specific antigen [PSA] (principal)
CPT/HCPCS: 84153